=== PATIENT | female | born 1995 | race American Indian/Alaskan Native ===

== ENCOUNTER 2020-11-12 13:18 | Emergency (ER) | payer SELFPAY ==
--- NOTE | 2020-11-12 14:12 | Emergency Department Report ---
ED Female HPI - General Chief complaint: Urogenital-Female Stated complaint: RT SIDE PELVIC PAIN/VAGINAL ITCH Time Seen by Provider: 11/12/20 13:32 Source: patient, family Mode of arrival: Ambulatory Limitations: No Limitations - History of Present Illness Initial comments: 25-year-old female presents to the ER today complaining of low abdominal/pelvic pain. Patient states that pain is more so on the right side. She states that she has had this pain off and on for months. She states that she has been to the ER several times for pain, and finally in July of last 2019 she was told that her pain was likely related to a cyst after they did an ultrasound. Patient states that the pain had improved, but about a week ago she started having the pain again. She states that due to lack of insurance she has not been able to follow-up with an [facility]. She has been taking naproxen for the pain but she states is not helping. She reports some discomfort with urination and some vaginal itching but no apparent discharge. She denies any abnormal vaginal bleeding. Her last menstrual cycle was October 21, 2020. She denies any nausea, vomiting, back pain, fever, chills or any other symptoms at this time. MD Complaint: pelvic pain -: month(s) - Related Data Previous Rx's Medication Instructions Recorded Last Taken Type Ibuprofen [Motrin] 800 mg PO Q8HR PRN #30 tablet 11/12/20 Unknown Rx metroNIDAZOLE [Flagyl] 500 mg PO Q12HR #14 tab 11/12/20 Unknown Rx Allergies Allergy/AdvReac Type Severity Reaction Status Date / Time No Known Allergies Allergy Verified 11/12/20 13:55 ED Review of Systems ROS: Stated complaint: RT SIDE PELVIC PAIN/VAGINAL ITCH Other details as noted in HPI Comment: All other systems reviewed and negative Respiratory: denies: cough, shortness of breath, wheezing Cardiovascular: denies: chest pain, palpitations Gastrointestinal: abdominal pain. denies: nausea, vomiting, diarrhea, constipation, hematemesis, melena Genitourinary: dysuria. denies: urgency, frequency, hematuria, discharge, abnormal menses, dyspareunia Skin: pruritus (Vaginal). denies: rash, lesions Neurological: denies: headache, weakness, paresthesias Psychiatric: denies: anxiety, depression Hematological/Lymphatic: denies: easy bleeding, easy bruising ED Past Medical Hx - Past Medical History Previous Medical History?: No - Surgical History Past Surgical History?: No - Social History Smoking Status: Never Smoker Substance Use Type: None - Medications Home Medications: Home Medications Medication Instructions Recorded Confirmed Last Taken Type Ibuprofen [Motrin] 800 mg PO Q8HR PRN #30 tablet 11/12/20 Unknown Rx metroNIDAZOLE [Flagyl] 500 mg PO Q12HR #14 tab 11/12/20 Unknown Rx ED Physical Exam - General Limitations: No Limitations General appearance: alert, in no apparent distress - Head Head exam: Present: atraumatic, normocephalic, normal inspection - Eye Eye exam: Present: normal appearance, PERRL, EOMI Pupils: Present: normal accommodation - Respiratory Respiratory exam: Absent: respiratory distress - Cardiovascular Cardiovascular Exam: Present: regular rate - GI/Abdominal GI/Abdominal exam: Present: soft. Absent: distended, tenderness, guarding, rebound - External exam: Present: normal external exam Speculum exam: Present: vaginal discharge (Mild, white). Absent: erythema, cervical discharge, foreign body, tissue, laceration Bi-manual exam: Absent: cervical motion tendernes, adnexal tenderness, uterine enlargement, uterine tenderness - Neurological Exam Neurological exam: Present: alert, oriented X3, CN II-XII intact, normal gait - Psychiatric Psychiatric exam: Present: normal affect, normal mood - Skin Skin exam: Present: intact ED Medical Decision Making - Medical Decision Making The patient is resting comfortably and , is alert and in no distress. The exam is unremarkable and benign; in particular, there is no discomfort at McBurney's point and there is no pulsatile mass. The history, exam, diagnostic testing and current condition do not suggest acute appendicitis, bowel obstruction, acute cholecystitis, bowel perforation, major GI bleed, severe diverticulitis, abdominal aortic aneurysm, mesenteric ischemia, volvulus, tubo-ovarian abscess, torsion, PID or sepsis or other significant pathology to warrant further testing, continued ED treatment, admission or surgical evaluation at this point. The patient does not have uncontrollable pain, intractable vomiting or other significant symptoms. The patient's condition is stable and appropriate for discharge from the emergency department. The patient will pursue further outpatient evaluation with the primary care physician or other designated or consulting physician as indicated in the discharge instructions. Critical care attestation.: If time is entered above; I have spent that time in minutes in the direct care of this critically ill patient, excluding procedure time. ED Disposition Clinical Impression: Pelvic pain, Hx of ovarian cyst, Bacterial vaginosis Disposition: TO HOME OR SELFCARE Is pt being admited?: No Does the pt Need Aspirin: No Condition: Stable Instructions: Pelvic Pain, Female, [id number], Bacterial Vaginosis, Ovarian Cyst, Bacterial Vaginosis (ED) Additional Instructions: Take the medication as prescribed for pain. Take the Flagyl as prescribed to help with bacterial vaginosis. It is important that you follow-up with [facility] for continued evaluation of your ovarian cyst/pelvic pain. Return to the ER if your symptoms changes or worsens in any way. Prescriptions: metroNIDAZOLE [Flagyl] 500 mg PO Q12HR #14 tab Ibuprofen [Motrin] 800 mg PO Q8HR PRN #30 tablet PRN Reason: Pain , Severe (7-10) Referrals: [facility] [Provider Group] - 3-5 Days Forms: STI Treatment and Prevention, Work/School Release Form(ED) Time of Disposition: 15:04
[2020-11-12 14:40] LABS: Bilirubin,Urine NEG (Negative); Blood,Urine NEG (Negative); Mucus,Urine FEW /HPF; RBC,Urine < 1.0 /HPF (0.0-6.0)
[2020-11-12 14:41] LABS: Color,Urine Yellow (Yellow)
[2020-11-12 14:42] LABS: HCG Qualitative,Urine Negative (Negative)
== END 2020-11-12 15:26 | disposition home or self-care (01) ==
LOC: ED 13:18
DX: N76.0 Acute vaginitis (principal); R10.2 Pelvic and perineal pain; Z87.42 Personal history of other diseases of the female genital tract; Z79.899 Other long term (current) drug therapy
CPT/HCPCS: 81001; 81025; 87210

== ENCOUNTER 2020-12-19 12:14 | Emergency (ER) | payer MEDICAID ==
[2020-12-19 13:32] LABS: HCG Qualitative,Urine Negative (Negative)
[2020-12-19 13:36] LABS: Bilirubin,Urine NEG (Negative); Blood,Urine NEG (Negative); Color,Urine Yellow (Yellow); Mucus,Urine FEW /HPF; Protein,Urine <15 mg/dL mg/dL (Negative); Urobilinogen,Urine < 2.0 mg/dL (<2.0)
--- NOTE | 2020-12-19 14:06 | Emergency Department Report ---
ED Female HPI - General Chief complaint: Urogenital-Female Stated complaint: VAGINAL DISCOMFORT/FREQUENT URINATION Time Seen by Provider: 12/19/20 12:35 Source: patient Mode of arrival: Ambulatory Limitations: No Limitations - History of Present Illness Initial comments: 25-year-old -[place] female presents to the emergency room complaining o f intermittent pelvic pain and urinary frequency for the last 2 days. Patient denies any vaginal discharge denies any dysuria. Patient was recently treated with Flagyl in November. Patient did not follow-up with [facility] or health department. It was noted that patient has a cyst on her ovary. Patient reports that they told her the cyst was about the size of her ovary itself. Patient does admit to unprotected intercourse with 1 partner. Onset/Timin -: days(s) Location: RLQ Radiation: non-radiating Severity: mild Quality: sharp Consistency: intermittent Improves with: none Worsens with: none Are you Now?: No Last Menstrual Period: 11/29/20 EDC: 09/05/21 Associated Symptoms: denies: vaginal discharge, vaginal bleeding, nausea/vomiting, fever/chills, shortness of breath, weakness - Related Data Sexually active: Yes (1 partner) Previous Rx's Medication Instructions Recorded Last Taken Type Ibuprofen [Motrin] 800 mg PO Q8HR PRN #30 tablet 11/12/20 Unknown Rx metroNIDAZOLE [Flagyl] 500 mg PO Q12HR #14 tab 11/12/20 Unknown Rx Doxycycline Hyclate [Doxycycline 100 mg PO Q12HR 7 Days #14 tab 12/19/20 Unknown Rx Hyclate TAB] Allergies Allergy/AdvReac Type Severity Reaction Status Date / Time No Known Allergies Allergy Verified 12/19/20 12:15 ED Review of Systems ROS: Stated complaint: VAGINAL DISCOMFORT/FREQUENT URINATION Other details as noted in HPI Comment: All other systems reviewed and negative ED Past Medical Hx - Past Medical History Previous Medical History?: No - Surgical History Additional Surgical History: LEFT HAND - Social History Smoking Status: Never Smoker Substance Use Type: None - Medications Home Medications: Home Medications Medication Instructions Recorded Confirmed Last Taken Type Ibuprofen [Motrin] 800 mg PO Q8HR PRN #30 tablet 11/12/20 Unknown Rx metroNIDAZOLE [Flagyl] 500 mg PO Q12HR #14 tab 11/12/20 Unknown Rx Doxycycline Hyclate [Doxycycline 100 mg PO Q12HR 7 Days #14 tab 12/19/20 Unknown Rx Hyclate TAB] ED Physical Exam - General Limitations: No Limitations General appearance: alert, in no apparent distress - Head Head exam: Present: atraumatic, normocephalic - Eye Eye exam: Present: normal appearance - ENT ENT exam: Present: mucous membranes moist - Respiratory Respiratory exam: Absent: chest wall tenderness - GI/Abdominal GI/Abdominal exam: Present: soft. Absent: distended, tenderness, guarding - Extremities Exam Extremities exam: Present: normal inspection, full ROM - Back Exam Back exam: Present: normal inspection - Neurological Exam Neurological exam: Present: alert, oriented X3, normal gait - Psychiatric Psychiatric exam: Present: normal affect, normal mood - Skin Skin exam: Present: warm, dry, intact, normal color. Absent: rash ED Course Vital Signs 12/19/20 12/19/20 12:16 14:56 Temperature 98.1 F Pulse Rate 88 70 Respiratory 18 18 Rate Blood Pressure 113/72 Blood Pressure 126/66 [Left] O2 Sat by Pulse 100 100 Oximetry ED Medical Decision Making - Medical Decision Making 25-year-old -[place] female presents to the emergency room complaining of intermittent pelvic pain and urinary frequency for the last 2 days. Patient denies any vaginal discharge denies any dysuria. Patient was recently treated with Flagyl in November. Patient did not follow-up with [facility] or health department. It was noted that patient has a cyst on her ovary. Patient reports that they told her the cyst was about the size of her ovary itself. Patient does admit to unprotected intercourse with 1 partner. Review of chart patient wet prep shows she has greater than 20% clue cells. No gonorrhea chlamydia test was sent. Patient has unremarkable physical examination. I do not have any concerns for PID but will treat patient presumptively for gonorrhea and chlamydia. Patient be given Rocephin 250 mg IM and discharged on doxycycline 100 mg p.o. twice daily as this will cover chlamydia and urinary tract infection. I discussed with patient in depth that she needs to refrain from intercourse until her partner and her are tested for gonorrhea and chlamydia at the health department. Patient verbalized understanding. Critical care attestation.: If time is entered above; I have spent that time in minutes in the direct care of this critically ill patient, excluding procedure time. ED Disposition Clinical Impression: Urinary frequency, Concern about STD in female without diagnosis, UTI (urinary tract infection) Disposition: DC- TO HOME OR SELFCARE Is pt being admited?: No Does the pt Need Aspirin: No Condition: Stable Additional Instructions: Please fill your prescription for doxycycline. This antibiotics will cover for chlamydia as well as a urinary tract infection. You can take ibuprofen [id number] for pain in your pelvis most likely from your ovarian cyst. Is very important that you refrain from intercourse until you and your partner has been fully evaluated. I have listed information below for your follow-up. You can get [id number] Monistat for yeast infection concern. Prescriptions: Doxycycline Hyclate [Doxycycline Hyclate TAB] 100 mg PO Q12HR 7 Days #14 tab Referrals: PRIMARY CARE, [Primary Care Provider] - 3-5 Days [facility] [Outside] - 3-5 Days [facility] [Outside] - 3-5 Days
[2020-12-19] MEDS ORDERED: LIDOCAINE-MPF (1%) 10 MG/1 ML VIAL 5 ML INFILTRATI ONE (14:19)
[2020-12-19 14:57] VITALS: BP 126/66
== END 2020-12-19 14:58 | disposition home or self-care (01) ==
LOC: ED 12:14
DX: N39.0 Urinary tract infection, site not specified (principal); R35.0 Frequency of micturition; Z20.2 Contact with and (suspected) exposure to infections with a predominantly sexual mode of transmission; Z98.890 Other specified postprocedural states; Z79.1 Long term (current) use of non-steroidal anti-inflammatories (NSAID); Z79.899 Other long term (current) drug therapy
CPT/HCPCS: 81001; 81025; 87086; 96372; 99283; J0696